=== PATIENT | male | born 1990 | race Caucasian/White ===

== ENCOUNTER 2016-10-22 11:41 | Emergency (ER) | payer SELFPAY ==
[~2016-10-22] VITALS: Ht 175.3 cm; Wt 74.8 kg
--- NOTE | 2016-10-22 11:49 | NUR ---
PT AMBULATORY TO ER BED 8. C/O RLQ ABDOMINAL PAIN X 1 WEEK AND WORST SINCE LAST NIGHT. ALSO NOTED HEMATURIA. C/O 9/10 PAIN. DENIES TRAUMA. GOWNED AND PLACED ON MONITOR. NAD NOTED. AWAITING MD RAMOS.
--- NOTE | 2016-10-22 11:53 | NUR ---
DR GARIBAY AT BEDSIDE FOR EVAL.
--- NOTE | 2016-10-22 11:56 | NUR ---
IV LINE STARTED. BLOOD DRAWN AND SENT TO LAB.
[2016-10-22] MEDS ORDERED: ONDANSETRON HCL/PF 4 MG/2 ML VIAL ONE (11:57)
[2016-10-22] MEDS ORDERED: KETOROLAC TROMETHAMINE INJ 30 MG/ML VIAL ONE (11:57)
[2016-10-22] MEDS ORDERED: IV NS 0.9% 1,000 ML ONE (11:58)
[2016-10-22] MEDS ORDERED: IV SET PRIMARY 1 EA INFUS.SET MC ONE (11:58)
[2016-10-22] MEDS ORDERED: KETOROLAC TROMETHAMINE INJ 30 MG/ML VIAL IV ONE (12:00)
[2016-10-22] MEDS ORDERED: IV NS 0.9% 1,000 ML BAG IV ONE (12:00)
[2016-10-22] MEDS ORDERED: ONDANSETRON HCL/PF 4 MG/2 ML VIAL IVP ONE (12:00)
[2016-10-22 12:05] LABS: BASOPHILS % (AUTO) 0.6 % (0.0-2.0); EOSINOPHILS # (AUTO) 0.1 /CMM (0.0-0.7); EOSINOPHILS % (AUTO) 1.8 % (0.0-6.0); HEMATOCRIT 45 % (39-51); HEMOGLOBIN 14.6 g/dL (13.5-17.5); LYMPHOCYTES # (AUTO) 1.7 /CMM (0.8-4.8); LYMPHOCYTES % (AUTO) 27.2 % (20.0-44.0); MEAN CORPUSCULAR HEMOGLOBIN 27 PG (26.0-33.0); MEAN CORPUSCULAR HGB CONC 33 g/dl (31.0-36.0); MEAN CORPUSCULAR VOLUME 82 fL (80-96); MONOCYTES # (AUTO) 0.4 /CMM (0.1-1.30); NEUTROPHILS % (AUTO) 64.4 % (43.0-81.0); PLATELET COUNT (AUTO) 263 /CMM (150-450); RDW COEFFICIENT OF VARIATION 12.5 (11.5-15.0); RED BLOOD CELL COUNT(AUTO) 5.48 MIL/uL (4.5-6.0); WHITE BLOOD COUNT (AUTO) 6.2 K/uL (4.3-11.0)
--- NOTE | 2016-10-22 12:06 | NUR ---
U/S TECH AT BEDSIDE FOR ABDOMINAL ULTRASOUND
[2016-10-22 12:18] LABS: CALCIUM, SERUM 9.7 mg/dL (8.5-10.1); CREATININE 1.1 mg/dL (0.6-1.3)
[2016-10-22 12:27] LABS: APPEARANCE,URINE TURBID (CLEAR); BILIRUBIN,URINE NEGATIVE (NEGATIVE); BLOOD, URINE 3+ Ery/uL (NEGATIVE); COLOR,URINE RED (YELLOW); KETONES,URINE NEGATIVE (NEGATIVE); LEUKOCYTE ESTERASE ,URINE NEGATIVE (NEGATIVE); NITRITE, URINE NEGATIVE (NEGATIVE); PROTEIN,URINE 2+ mg/dl (NEGATIVE); UGLUCOSE NEGATIVE (NEGATIVE); UROBILINOGEN,URINE 0.2 EU/dL (0.2)
[2016-10-22 12:32] LABS: RBC,URINE TOO NUMEROUS TO COUN /HPF (0-2)
[2016-10-22 12:33] LABS: ADD URINE CULTURE NO; BACTERIA,URINE None seen /HPF (None Seen); SQUAMOUS EPITHELIAL CELL,UR Rare /HPF (None Seen)
[2016-10-22 13:03] VITALS: BP 132/86
--- NOTE | 2016-10-22 13:03 | NUR ---
Patient discharged to home in stable condition. Written and verbal after care instructions given. Patient verbalizes understanding of instruction.IV removed. Catheter intact and site benign. Pressure and 4x4 applied to site. No bleeding noted.
== END 2016-10-22 13:04 | disposition home or self-care (01) ==
LOC: ER 11:44
DX: R31.9 Hematuria, unspecified (principal)
CPT/HCPCS: 36415; 76700-TC; 80048-TC; 81000-TC; 85025-TC; A4606; J1885; J2405; J7030; Z7610